=== PATIENT | female | born 1960 | race Two or more races ===

== ENCOUNTER 2021-10-09 14:12 | Emergency (ER) | payer OTHER ==
[~2021-10-09] VITALS: Ht 147.3 cm; Wt 93.0 kg
--- NOTE | 2021-10-09 14:17 | NUR ---
FAMILY IN THE WAITING ROOM
--- NOTE | 2021-10-09 14:18 | NUR ---
Pt came to ER c/o epigastric/chest pressure s/p learning her daughter is going to another state. Admits stress. BS = 130. No pacemaker. Addendum: 10/09/21 at 1500 by KAREEM correction: has pacemaker
--- NOTE | 2021-10-09 14:44 | NUR ---
URINE SAMPLE OBTAINED AND SENT TO LAB
[2021-10-09] MEDS ORDERED: LORAZEPAM 1 MG TABLET PO ONE (15:00)
[2021-10-09] MEDS ORDERED: LORAZEPAM 1 MG TABLET ONE (15:02)
[2021-10-09 15:16] LABS: BASOPHILS # (AUTO) 0.1 K/uL (0.0-0.2); BASOPHILS % (AUTO) 0.7 % (0.0-2.0); EOSINOPHILS % (AUTO) 1.1 % (0.0-6.0); HEMATOCRIT 31 % (33-45); HEMOGLOBIN 10.1 g/dL (11.5-14.8); LYMPHOCYTES # (AUTO) 1.4 K/uL (0.8-4.8); LYMPHOCYTES % (AUTO) 18.5 % (20.0-44.0); MEAN CORPUSCULAR HGB CONC 33 g/dl (31.0-36.0); MEAN CORPUSCULAR VOLUME 76 fL (82-100); MONOCYTES # (AUTO) 0.5 K/uL (0.1-1.30); MONOCYTES % (AUTO) 6.8 % (2.0-12.0); NEUTROPHILS # (AUTO) 5.5 K/uL (1.8-8.9); NEUTROPHILS % (AUTO) 72.9 % (43.0-81.0); PLATELET COUNT (AUTO) 230 K/uL (150-450); RED BLOOD CELL COUNT(AUTO) 4.07 MIL/uL (4.0-5.2); WHITE BLOOD COUNT (AUTO) 7.6 K/uL (4.3-11.0)
--- NOTE | 2021-10-09 15:25 | NUR ---
SPOKE TO FAMILY IN WAITING ROOM. PER FAMILY, PT HAD PACEMAKER ADJUSTMENT 1 MONTH AGO.
[2021-10-09 15:29] LABS: CALCIUM, SERUM 8.7 mg/dL (8.5-10.1); CARBON DIOXIDE 26 mmol/L (21-32); CHLORIDE 103 mmol/L (98-107); CREATININE 1.2 mg/dL (0.6-1.3); GLUCOSE 94 mg/dL (74-106); POTASSIUM 4.4 mmol/L (3.5-5.1); SODIUM SERUM 138 mmol/L (136-145); UREA NITROGEN, BLOOD 34 mg/dL (7-18)
--- NOTE | 2021-10-09 16:47 | NUR ---
PT SITTING IN BED COMFORTABLY. COMFORT MEASURES IN PLACE. NEEDS MET.
[2021-10-09] MEDS ORDERED: LORA-259 PO (19:15)
--- NOTE | 2021-10-09 19:20 | NUR ---
Patient discharged to home in stable condition. Written and verbal after care instructions given. Patient verbalizes understanding of instruction.
[2021-10-09 19:21] VITALS: BP 134/65
== END 2021-10-09 19:22 | disposition home or self-care (01) ==
LOC: ER 14:21
DX: R07.89 Other chest pain (principal); F41.9 Anxiety disorder, unspecified; I10 Essential (primary) hypertension; J45.909 Unspecified asthma, uncomplicated; E11.9 Type 2 diabetes mellitus without complications; Z79.899 Other long term (current) drug therapy
CPT/HCPCS: 36415; 71045-TC; 80048-TC; 84484-TC; 85025-TC